=== PATIENT | male | born 1945 | race Caucasian/White ===

== ENCOUNTER 2019-10-06 10:08 | Emergency (ER) | payer MEDICARE, BC ==
[2019-10-06 11:01] LABS: O2 DELIVERY DEVICE ROOM AIR
[2019-10-06 11:03] LABS: BASE EXCESS ARTERIAL -22 mmol/L (-2-3); BICARBONATE,ARTERIAL 5.6 mmol/L (22-26); O2 SATURATION ARTERIAL 97 % (95-98); PCO2 ARTERIAL 17 mmHG (35-45); PO2 ARTERIAL 117 mmHG (80-105)
[2019-10-06] MEDS: Ondansetron 4 MG/2 ML SDV ONE ×2 (11:06→11:12)
[2019-10-06] MEDS ORDERED: Sodium Chloride 0.9% 10 ML Syringe FLUSH PRN (11:07)
[2019-10-06] MEDS ORDERED: Ondansetron 4 MG/2 ML SDV IVPUSH ONE (11:10)
[2019-10-06] MEDS ORDERED: Sodium Chloride 0.9% 1,000 ML IV ONE ×2 (11:11→12:23)
[2019-10-06 11:15] LABS: CHLORIDE,CL 85 mmol/L (98-107); SODIUM,NA 129 mmol/L (136-145)
[2019-10-06] MEDS ORDERED: Insulin Regular, Human 100 Units/ML 3 ML Vial IV ONE ×2 (11:19→13:14)
[2019-10-06] MEDS ORDERED: Sodium Bicarbonate 8.4% 50 MEQ/50 ML Syringe IVPUSH ONE (11:31)
[2019-10-06] MEDS ORDERED: Sodium Chloride 0.9% 1,000 ML IV SCH (12:00)
[2019-10-06 12:11] LABS: BASE EXCESS ARTERIAL -18 mmol/L (-2-3); BICARBONATE,ARTERIAL 8.4 mmol/L (22-26); O2 DELIVERY DEVICE ROOM AIR; O2 SATURATION ARTERIAL 97 % (95-98); PCO2 ARTERIAL 21 mmHG (35-45); PO2 ARTERIAL 110 mmHG (80-105)
--- NOTE | 2019-10-06 12:26 | EDM.PDOC ---
ED HPI GENERAL MEDICAL PROBLEM - General Chief Complaint: General Stated Complaint: elevated glucose, emesis Time Seen by Provider: 10/06/19 10:12 Source of Information: Reports: EMS, Half-Way Records History Limitations: Reports: Altered Mental Status - History of Present Illness INITIAL COMMENTS - FREE TEXT/NARRATIVE: Pt sent to ER via EMS from [facility]. Pt is unresponsive Has been noted to have glucose > 700 for past 5 days but refused to come to ER No fever No other issues per [facility] Onset: Gradual Duration: Day(s):, Getting Worse Location: Reports: Generalized Context: Reports: Other (DKA, hyperglycemia) - Related Data Allergies Allergy/AdvReac Type Severity Reaction Status Date / Time tamsulosin Allergy Hypotension Verified 10/06/19 10:13 zolpidem [Zolpidem] AdvReac Mild Change Verified 10/06/19 10:13 Mental Status alprazolam AdvReac Change Verified 10/06/19 10:13 Mental Status diazepam AdvReac Change Verified 10/06/19 10:13 Mental Status trazodone AdvReac Change Verified 10/06/19 10:13 Mental Status Home Meds: Home Meds fentaNYL [Fentanyl] 75 mcg TRDERM ASDIRECTED 08/07/18 [History] polyethylene glycoL 3350 [MiraLAX] 17 gm PO DAILY PRN 08/07/18 [History] Gabapentin [Neurontin] 300 mg PO TID 10/14/18 [History] atorvaSTATin [Lipitor] 40 mg PO BEDTIME 10/14/18 [History] Aspirin [Halfprin] 81 mg PO DAILY 10/30/18 [History] Citalopram [Citalopram HBr] 20 mg PO DAILY 10/30/18 [History] Hydrocodone/Acetaminophen [Hydrocodone-Acetamin 10-325 mg] 1 tab PO Q4H PRN 10/30/18 [History] Ranitidine [Zantac] 150 mg PO BEDTIME 10/30/18 [History] SUMAtriptan succinate [Imitrex] 100 mg PO Q2H PRN 10/30/18 [History] diphenhydrAMINE [Benadryl] 25 mg PO BEDTIME PRN 10/30/18 [History] lisinopriL [Lisinopril] 2.5 mg PO DAILY 10/30/18 [History] Calcium Carbonate/Vitamin D3 [Calcium 600 + Vit D 200] 1 tab PO DAILY 11/23/18 [History] Glucagon [Gvoke Pfs 1-Pack Syringe] 1 mg IM ASDIRECTED PRN 11/23/18 [History] Insulin Glarg,Human.Rec.Analog [Lantus] 10 unit SUBCUT BID #14 ml 11/27/18 [Rx] Levothyroxine 25 mcg PO ACBREAKFAST #20 tablet 11/27/18 [Rx] DULoxetine HCl [Cymbalta] 30 mg PO BEDTIME 10/06/19 [History] Insulin Aspart [NovoLOG] 6 units SUBCUT TIDMEALS 10/06/19 [History] Melatonin 3 mg PO BEDTIME 10/06/19 [History] Past Medical History HEENT History: Reports: Hard of Hearing Other HEENT History: wears eyeglasses. Cardiovascular History: Reports: High Cholesterol, Hypertension Respiratory History: Reports: Sleep Apnea Other Respiratory History: states has C-PAP but doesn't use it due to "It's so loud." Gastrointestinal History: Reports: GERD Genitourinary History: Reports: BPH Other Genitourinary History: stress incontinence Musculoskeletal History: Reports: Osteoarthritis Neurological History: Reports: Neuropathy, Diabetic Psychiatric History: Reports: Addiction, Depression, Other (See Below) Other Psychiatric History: insomnia Endocrine/Metabolic History: Reports: Diabetes, Type II, Hypothyroidism Hematologic History: Reports: None Immunologic History: Reports: None Oncologic (Cancer) History: Reports: None Dermatologic History: Reports: None - Infectious Disease History Infectious Disease History: Reports: Chicken Pox, Measles, Mumps - Past Surgical History Cardiovascular Surgical History: Reports: None GI Surgical History: Reports: Cholecystectomy, Colonoscopy, EGD Neurological Surgical History: Reports: Lumbar Spine Other Musculoskeletal Surgeries/Procedures:: 6 Back Surgeries Social & Family History - Family History Family Medical History: Noncontributory - Tobacco Use Smoking Status *Q: Unknown Ever Smoked - Caffeine Use Caffeine Use: Reports: Coffee, Soda - Recreational Drug Use Recreational Drug Use Frequency: Patient Refuses To Answer - Living Situation & Occupation Living situation: Reports: , with Significant Other (Fiance) Occupation: Retired ED ROS GENERAL - Review of Systems Review Of Systems: See Below Respiratory: Reports: No Symptoms Cardiovascular: Reports: No Symptoms GI/Abdominal: Reports: No Symptoms Neurological: Reports: Weakness Psychiatric: Reports: Confusion ED EXAM, GENERAL - Physical Exam Exam: See Below Exam Limited By: Altered Mental Status General Appearance: Lethargic, Obtunded Eye Exam: Bilateral Eye: PERRL Throat/Mouth: Normal Oropharynx Head: Atraumatic Neck: Supple Respiratory/Chest: Decreased Breath Sounds Cardiovascular: Tachycardia GI/Abdominal: Soft Extremities: Pedal Edema Neurological: Slow to Respond, Other (Lethargic Responds to noxious stimuli) Skin Exam: Diaphoretic Course - Vital Signs Last Recorded V/S: Last Vital Signs Temp 97.1 F 10/06/19 10:12 Pulse 109 H 10/06/19 10:12 Resp 22 H 10/06/19 10:12 BP 119/78 10/06/19 10:12 Pulse Ox 92 L 10/06/19 10:12 - Orders/Labs/Meds Orders: Active Orders 24 hr Category Date Time Status EKG Documentation Completion [RC] ASDIRECTED Care 10/06/19 11:31 Active Chest 1V Frontal [CR] Stat Exams 10/06/19 10:12 Taken Head wo Cont [CT] Stat Exams 10/06/19 10:12 Taken GLUCOSE RANDOM [CHEM] Stat Lab 10/06/19 12:40 Ordered Insulin Regular, Human [HumuLIN R] 100 unit Med 10/06/19 11:22 Active Sodium Chloride 0.9% [Normal Saline] 99 ml IV TITRATE Sodium Chloride 0.9% [Normal Saline] 1,000 ml Med 10/06/19 12:00 Active IV ASDIRECTED Sodium Chloride 0.9% [Saline Flush] Med 10/06/19 11:07 Active 10 ml FLUSH ASDIRECTED PRN EKG 12 Lead [EK] Stat Ther 10/06/19 11:31 Ordered Medication Orders Insulin Human Regular 100 unit (/ Sodium Chloride) 100 mls @ 6.917 mls/hr IV TITRATE REBECCA; Protocol Last Admin: 10/06/19 11:44 Dose: 0.1 units/kg/hr, 6.917 mls/hr Documented by: CHAPITO Cosigned by: CRYSTAL Sodium Chloride (Normal Saline) 1,000 mls @ 500 mls/hr IV ASDIRECTED REBECCA Last Admin: 10/06/19 11:55 Dose: 500 mls/hr Documented by: CHAPITO Sodium Chloride (Saline Flush) 10 ml FLUSH ASDIRECTED PRN PRN Reason: Keep Vein Open Last Admin: 10/06/19 11:07 Dose: 10 ml Documented by: CHAPITO Labs: Laboratory Tests 10/06/19 10/06/19 10/06/19 Range/Units 10:30 10:35 10:35 WBC 12.7 H (4.0-10.2) K/uL RBC 3.37 L (4.33-5.41) M/uL Hgb 10.1 L (13.1-16.8) g/dL Hct 34.8 L (39.0-49.0) % MCV 103.3 H (84.0-98.0) fL MCH 30.0 (28.2-33.3) pg MCHC 29.0 L (31.7-36.0) g/dL RDW 14.3 H (11.2-14.1) % Plt Count 333 (150-350) K/uL Neut % (Auto) 87.1 H (45.0-80.0) % Lymph % (Auto) 7.0 L (10.0-50.0) % [place] % (Auto) 5.4 (2.0-14.0) % Eos % (Auto) 0.2 (0.0-5.0) % Baso % (Auto) 0.3 (0.0-2.0) % Neut # (Auto) 11.04 H (1.40-7.00) K/uL Lymph # (Auto) 0.89 (0.50-3.50) K/uL [place] # (Auto) 0.69 (0.00-1.00) K/uL Eos # (Auto) 0.02 (0.00-0.50) K/uL Baso # (Auto) 0.04 (0.00-0.20) K/uL ABG pH (7.35-7.45) ABG pCO2 (35-45) mmHG ABG pO2 (80-105) mmHG ABG HCO3 (22-26) mmol/L ABG Total CO2 (23-27) mmol/L ABG O2 Saturation (95-98) % ABG Base Excess (-2-3) mmol/L O2 Delivery Device Sodium 129 L (136-145) mmol/L Potassium 5.9 H* (3.5-5.1) mmol/L Chloride 85 L (98-107) mmol/L Carbon Dioxide 5.2 L* (21.0-32.0) mmol/L BUN 43 H (7-18) mg/dL Creatinine 2.57 H (0.51-1.17) mg/dL Est Cr Clr Drug Dosing TNP Estimated GFR (MDRD) 25 mL/min Glucose 1176 H* (74-106) mg/dL Lactic Acid (0.4-2.0) mmol/L Calcium 9.6 (8.5-10.1) mg/dL Total Bilirubin 0.6 (0.2-1.0) mg/dL AST 37 (15-37) U/L ALT 42 (12-78) U/L Alkaline Phosphatase 175 H (46-116) IU/L Troponin I (0.000-0.056) ng/mL Total Protein 7.8 (6.4-8.2) g/dL Albumin 3.8 (3.4-5.0) g/dL Specimen Type Urincath Urine Color Yellow Urine Appearance Slightly cloudy Urine pH 5.0 (5.0-9.0) Ur Specific [place] 1.020 (1.005-1.030) Urine Protein Negative (NEGATIVE) mg/dL Urine Glucose (UA) >=1000 H (NEGATIVE) mg/dL Urine Ketones 40 H (NEGATIVE) mg/dL Urine Occult Blood Large H (NEGATIVE) Urine Nitrite Negative (NEGATIVE) Urine Bilirubin Small H (NEGATIVE) Urine Urobilinogen 0.2 (0.2-1.0) E.U./dL Ur Leukocyte Esterase Negative (NEGATIVE) Urine RBC >100 H /HPF Urine WBC 0-5 /HPF Ur Epithelial Cells Few /LPF Amorphous Sediment Many H (0/HPF) /HPF Urine Bacteria Few (NONE TO FEW) /HPF 10/06/19 10/06/19 10/06/19 Range/Units 10:35 10:35 10:50 WBC (4.0-10.2) K/uL RBC (4.33-5.41) M/uL Hgb (13.1-16.8) g/dL Hct (39.0-49.0) % MCV (84.0-98.0) fL MCH (28.2-33.3) pg MCHC (31.7-36.0) g/dL RDW (11.2-14.1) % Plt Count (150-350) K/uL Neut % (Auto) (45.0-80.0) % Lymph % (Auto) (10.0-50.0) % [place] % (Auto) (2.0-14.0) % Eos % (Auto) (0.0-5.0) % Baso % (Auto) (0.0-2.0) % Neut # (Auto) (1.40-7.00) K/uL Lymph # (Auto) (0.50-3.50) K/uL [place] # (Auto) (0.00-1.00) K/uL Eos # (Auto) (0.00-0.50) K/uL Baso # (Auto) (0.00-0.20) K/uL ABG pH 7.13 L* (7.35-7.45) ABG pCO2 17 L* (35-45) mmHG ABG pO2 117 H (80-105) mmHG ABG HCO3 5.6 L (22-26) mmol/L ABG Total CO2 7 L (23-27) mmol/L ABG O2 Saturation 97 (95-98) % ABG Base Excess -22 L (-2-3) mmol/L O2 Delivery Device Room air Sodium (136-145) mmol/L Potassium (3.5-5.1) mmol/L Chloride (98-107) mmol/L Carbon Dioxide (21.0-32.0) mmol/L BUN (7-18) mg/dL Creatinine (0.51-1.17) mg/dL Est Cr Clr Drug Dosing Estimated GFR (MDRD) mL/min Glucose (74-106) mg/dL Lactic Acid 12.3 H (0.4-2.0) mmol/L Calcium (8.5-10.1) mg/dL Total Bilirubin (0.2-1.0) mg/dL AST (15-37) U/L ALT (12-78) U/L Alkaline Phosphatase (46-116) IU/L Troponin I 0.010 (0.000-0.056) ng/mL Total Protein (6.4-8.2) g/dL Albumin (3.4-5.0) g/dL Specimen Type Urine Color Urine Appearance Urine pH (5.0-9.0) Ur Specific [place] (1.005-1.030) Urine Protein (NEGATIVE) mg/dL Urine Glucose (UA) (NEGATIVE) mg/dL Urine Ketones (NEGATIVE) mg/dL Urine Occult Blood (NEGATIVE) Urine Nitrite (NEGATIVE) Urine Bilirubin (NEGATIVE) Urine Urobilinogen (0.2-1.0) E.U./dL Ur Leukocyte Esterase (NEGATIVE) Urine RBC /HPF Urine WBC /HPF Ur Epithelial Cells /LPF Amorphous Sediment (0/HPF) /HPF Urine Bacteria (NONE TO FEW) /HPF 10/06/19 Range/Units 12:00 WBC (4.0-10.2) K/uL RBC (4.33-5.41) M/uL Hgb (13.1-16.8) g/dL Hct (39.0-49.0) % MCV (84.0-98.0) fL MCH (28.2-33.3) pg MCHC (31.7-36.0) g/dL RDW (11.2-14.1) % Plt Count (150-350) K/uL Neut % (Auto) (45.0-80.0) % Lymph % (Auto) (10.0-50.0) % [place] % (Auto) (2.0-14.0) % Eos % (Auto) (0.0-5.0) % Baso % (Auto) (0.0-2.0) % Neut # (Auto) (1.40-7.00) K/uL Lymph # (Auto) (0.50-3.50) K/uL [place] # (Auto) (0.00-1.00) K/uL Eos # (Auto) (0.00-0.50) K/uL Baso # (Auto) (0.00-0.20) K/uL ABG pH 7.21 L* (7.35-7.45) ABG pCO2 21 L* (35-45) mmHG ABG pO2 110 H (80-105) mmHG ABG HCO3 8.4 L (22-26) mmol/L ABG Total CO2 10 L (23-27) mmol/L ABG O2 Saturation 97 (95-98) % ABG Base Excess -18 L (-2-3) mmol/L O2 Delivery Device Room air Sodium (136-145) mmol/L Potassium (3.5-5.1) mmol/L Chloride (98-107) mmol/L Carbon Dioxide (21.0-32.0) mmol/L BUN (7-18) mg/dL Creatinine (0.51-1.17) mg/dL Est Cr Clr Drug Dosing Estimated GFR (MDRD) mL/min Glucose (74-106) mg/dL Lactic Acid (0.4-2.0) mmol/L Calcium (8.5-10.1) mg/dL Total Bilirubin (0.2-1.0) mg/dL AST (15-37) U/L ALT (12-78) U/L Alkaline Phosphatase (46-116) IU/L Troponin I (0.000-0.056) ng/mL Total Protein (6.4-8.2) g/dL Albumin (3.4-5.0) g/dL Specimen Type Urine Color Urine Appearance Urine pH (5.0-9.0) Ur Specific [place] (1.005-1.030) Urine Protein (NEGATIVE) mg/dL Urine Glucose (UA) (NEGATIVE) mg/dL Urine Ketones (NEGATIVE) mg/dL Urine Occult Blood (NEGATIVE) Urine Nitrite (NEGATIVE) Urine Bilirubin (NEGATIVE) Urine Urobilinogen (0.2-1.0) E.U./dL Ur Leukocyte Esterase (NEGATIVE) Urine RBC /HPF Urine WBC /HPF Ur Epithelial Cells /LPF Amorphous Sediment (0/HPF) /HPF Urine Bacteria (NONE TO FEW) /HPF Meds: Medications Generic Name Dose Route Start Last Admin Trade Name Freq PRN Reason Stop Dose Admin Insulin Human Regular 100 unit 100 mls @ 6.917 mls/hr 10/06/19 11:22 10/06/19 11:44 / Sodium Chloride IV 0.1 units/kg/hr TITRATE REBECCA 6.917 mls/hr Administration Protocol 0.1 UNITS/KG/HR Sodium Chloride 1,000 mls @ 500 mls/hr 10/06/19 12:00 10/06/19 11:55 Normal Saline IV 500 mls/hr ASDIRECTED REBECCA Administration Sodium Chloride 10 ml 10/06/19 11:07 10/06/19 11:07 Saline Flush FLUSH 10 ml ASDIRECTED PRN Administration Keep Vein Open Discontinued Medications Generic Name Dose Route Start Last Admin Trade Name Myrtle PRN Reason Stop Dose Admin Sodium Chloride 1,000 mls @ 999 mls/hr 10/06/19 11:11 10/06/19 11:13 Normal Saline IV 10/06/19 12:11 999 mls/hr .BOLUS ONE Administration Insulin Human Regular 100 unit 100 mls @ 0 mls/hr 10/06/19 11:30 / Sodium Chloride IV TITRATE REBECCA Protocol 0.1 UNITS/KG/HR Insulin Human Regular 10 unit 10/06/19 11:19 10/06/19 11:40 Humulin R IV 10/06/19 11:20 10 units ONETIME ONE Administration Ondansetron HCl Confirm 10/06/19 10:54 10/06/19 11:12 Zofran Administered 10/06/19 10:55 Not Given Dose 8 mg .ROUTE .STK-MED ONE Ondansetron HCl 8 mg 10/06/19 11:10 10/06/19 11:12 Zofran IVPUSH 10/06/19 11:11 8 mg ONETIME ONE Administration Sodium Bicarbonate 50 meq 10/06/19 11:31 10/06/19 11:34 Sodium Bicarbonate 8.4% IVPUSH 10/06/19 11:32 50 meq ONETIME ONE Administration - Re-Assessments/Exams Free Text/Narrative Re-Assessment/Exam: 10/06/19 12:24 Pt with glucose 1176 See ABG's Pt given IV NS, IV Zofran, IV Bicarb and IV insulin with IV insulin drip See repeat ABG's See lab reports and xray reports D/W Dr Chow On-call hospitalist [facility] Will accept in transfer Transfer via EMS Departure - Departure Time of Disposition: 12:30 Disposition: DC/Tfer to [facility] Clinical Impression: Hyperglycemia, Hyperkalemia, High anion gap metabolic acidosis, Hyponatremia, Uncontrolled diabetes mellitus DKA (diabetic ketoacidoses) Qualifiers: Diabetes mellitus type: due to underlying condition Diabetes mellitus complication detail: with coma Qualified Code(s): E08.11 - Diabetes mellitus due to underlying condition with ketoacidosis with coma - Discharge Information *PRESCRIPTION DRUG MONITORING PROGRAM REVIEWED*: Not Applicable *COPY OF PRESCRIPTION DRUG MONITORING REPORT IN PATIENT MECHE: Not Applicable Referrals: Kamila Tamayo PA [Primary Care Provider] - Sepsis Event Note (ED) - Evaluation Sepsis Screening Result: No Definite Risk - Focused Exam Vital Signs: Vital Signs Temp Pulse Resp BP Pulse Ox 10/06/19 10:12 97.1 F 109 H 22 H 119/78 92 L - My Orders Last 24 Hours: My Active Orders 10/06/19 10:12 Chest 1V Frontal [CR] Stat Head wo Cont [CT] Stat 10/06/19 11:07 Sodium Chloride 0.9% [Saline Flush] 10 ml FLUSH ASDIRECTED PRN 10/06/19 11:22 Insulin Regular, Human [HumuLIN R] 100 unit Sodium Chloride 0.9% [Normal Saline] 99 ml IV TITRATE 10/06/19 11:31 EKG Documentation Completion [RC] ASDIRECTED EKG 12 Lead [EK] Stat 10/06/19 12:00 Sodium Chloride 0.9% [Normal Saline] 1,000 ml IV ASDIRECTED 10/06/19 12:40 GLUCOSE RANDOM [CHEM] Stat - Assessment/Plan Last 24 Hours: My Active Orders 10/06/19 10:12 Chest 1V Frontal [CR] Stat Head wo Cont [CT] Stat 10/06/19 11:07 Sodium Chloride 0.9% [Saline Flush] 10 ml FLUSH ASDIRECTED PRN 10/06/19 11:22 Insulin Regular, Human [HumuLIN R] 100 unit Sodium Chloride 0.9% [Normal Saline] 99 ml IV TITRATE 10/06/19 11:31 EKG Documentation Completion [RC] ASDIRECTED EKG 12 Lead [EK] Stat 10/06/19 12:00 Sodium Chloride 0.9% [Normal Saline] 1,000 ml IV ASDIRECTED 10/06/19 12:40 GLUCOSE RANDOM [CHEM] Stat
[2019-10-06] MEDS ORDERED: Sodium Bicarbonate 8.4% 50 MEQ/50 ML Syringe ONE (14:11)
== END 2019-10-06 13:30 ==
LOC: LL.ED 10:08
DX: E08.11 Diabetes mellitus due to underlying condition with ketoacidosis with coma (principal); E87.5 Hyperkalemia; E87.1 Hypo-osmolality and hyponatremia; R00.0 Tachycardia, unspecified; I10 Essential (primary) hypertension; E78.00 Pure hypercholesterolemia, unspecified; M19.90 Unspecified osteoarthritis, unspecified site; F32.9 Major depressive disorder, single episode, unspecified; E03.9 Hypothyroidism, unspecified; Z79.82 Long term (current) use of aspirin; Z79.899 Other long term (current) drug therapy; Z79.4 Long term (current) use of insulin; Z88.5 Allergy status to narcotic agent; Z88.8 Allergy status to other drugs, medicaments and biological substances
CPT/HCPCS: 36415; 51702; 70450; 71045; 80053; 81001; 82803; 82947; 83605; 84484; 85025; 93005; 96361; 96374; 96375; 99285; J1815; J2405; J7030